=== PATIENT | male | born 1975 | race Caucasian/White ===

== ENCOUNTER 2018-09-06 14:47 | Inpatient (IN) ==
[2018-09-06] MEDS ORDERED: MORPHINE IV ONE ×2 (14:56→17:15)
[2018-09-06] MEDS ORDERED: ZOFRAN IV ONE (14:56)
[2018-09-06] MEDS ORDERED: ZOFRAN ONE (15:00)
[2018-09-06] MEDS ORDERED: MORPHINE ONE (15:01)
[2018-09-06] MEDS ORDERED: KEFZOL 2 GM/D5W 2 GM/50 ML IVPB IV ONE (15:25)
[2018-09-06 15:42] LABS: BASO# 0.07 X1000 (0.0-0.2); BASO% 0.6 % (0.0-0.8); EOS# 0.17 X1000 (0.0-0.7); EOS% 1.5 % (0.0-10.0); HEMATOCRIT 44.3 % (42.0-52.0); HEMOGLOBIN 15.4 g/dL (14.0-18.0); IMM GRAN# 0.04 X1000 (0.0-0.04); IMM GRAN% 0.4 % (0.0-0.5); LYMPH% 34.6 % (20.5-51.1); MCH 30.2 PG (27-31); MCHC 34.8 g/dL (33-37); MCV 86.9 FL (81-99); MONO# 0.72 X1000 (0.11-0.59); MONO% 6.6 % (1.7-9.3); NEUT# 6.18 X1000 (1.4-6.5); NEUT% 56.3 % (42.2-75.2); PLT 264 X1000 (130-400); RDW 12.7 % (11.5-14.5); WBC 10.98 X1000 (4.8-10.8)
--- NOTE | 2018-09-06 15:43 | PROVIDER DOCUMENTATION ---
This chart was entered by Tonya Blake Scribe, acting as scribe for Aracelis Hartman MD. HPI-Musculoskeletal Pain/Inj - GENERAL Stated Complaint: FALL/RT LEG INJURY Time Seen by Provider: 09/06/18 14:56 Source: patient - HX OF PRESENT ILLNESS-MUSKULOSKELTAL Nature of Presenting Problem: Patient is a 43 year old male who presents with right lower leg pain. States he fell out of a truck prior to arrival. Denies any other injuries. Quality of Pain: reports: aching Severity in ED: moderate Onset/Duration: just prior to arrival Timing: still present Modifying Factors: worse with: movement Any recent injury?: Yes (fall ) Similar Symptoms Previously?: No Recently seen or treated by another doctor?: No - FALL INJURY Location of Pain/Injury: reports: lower extremity (right lower leg) Pain Radiation: reports: no radiation Reason for Fall: reports: unknown Symptoms prior to fall:: reports: none Loss of Consciousness: no loss of consciousness Injury Associated Symptoms: reports: denies symptoms - LOWER EXTREMITY PAIN/INJURY Lower Extremities Pain: leg: right (lower ) Context / Method of Injury: reports: fell Associated Symptoms: reports: denies symptoms Review of Systems - Adult - REVIEW OF SYSTEMS - ADULT ROS:: limited per condition Constitutional: reports: no symptoms reported Eyes: reports: no symptoms reported Ears, Nose, Mouth & Throat: reports: no symptoms reported Cardiovascular: reports: no symptoms reported Respiratory: reports: no symptoms reported Gastrointestinal: reports: no symptoms reported Genitourinary: reports: no symptoms reported Musculoskeletal: reports: see HPI, other (right lower leg pain). denies: back pain, muscle aches, neck pain Integumentary: reports: no symptoms reported Neurological: reports: no symptoms reported Psychiatric: reports: no symptoms reported Endocrine: reports: no symptoms reported Hematologic/Lymphatic: reports: no symptoms reported Allergic/Immunologic: reports: no symptoms reported All Other Systems: Reviewed and Negative Past History - Adult - PAST MEDICAL HISTORY-ADULT Review of Records: reports: Old Records Reviewed, Nursing Assessment Review, Medications Reviewed, Social history reviewed & non-contributory. Major Childhood Illnesses: reports: denies history Cardiovascular: reports: denies history Respiratory: reports: denies history Gastrointestinal: reports: denies history Obstetrical/Gynecological: reports: denies history Genitourinary: reports: denies history Musculoskeletal: reports: denies history Neurological: reports: denies history Psychiatric: reports: denies history Endocrine/Immune: reports: denies history Other Conditions: reports: denies history - PRIOR SURGERIES/PROCEDURES Surgical/Procedure History: reports: reviewed, not pertinent - IMMUNIZATION STATUS Childhood Immunizations: See Nurse Assessment Flu Vaccine: See Nurse Assessment - FAMILY HISTORY Family History: reviewed, not pertinent - SOCIAL HISTORY Smoking: denies Substance Use: denies Physical Exam-Injury Related - Physical Exam-Injury Related Initial Vital Signs Reviewed: Yes General Appearance: alert, mild distress. negative: lethargic Head, Ears, Nose, Mouth & Throat: normocephalic/atraumatic, moist mucous membranes. negative: angioedema Respiratory: chest non-tender, lungs clear, normal breath sounds. negative: wh eezing Cardiovascular: normal peripheral pulses, regular rate, rhythm. negative: tachycardia Peripheral Pulses: dorsalis-pedis (R): 2+, dorsalis-pedis (L): 2+ Extremity: normal capillary refill, deformity (right lower leg), tenderness (right lower leg), other (abrasion to right anterior lower leg). negative: erythema Integumentary: abrasion (right anterior lower leg). negative: ecchymosis, swel ling Neurologic: grossly normal. negative: aphasia, facial droop Psych/Mental Status: normal mood/affect, oriented x 3. negative: anxious Progress - PLAN OF CARE/RESULTS Progress/Plan/Lab Results: Vital Signs - 8 hr 09/06/18 15:03 Pulse Rate 75 Respiratory Rate 27 H Blood Pressure 123/74 O2 Sat by Pulse Oximetry 97 Laboratory Results - last 24 hr 09/06/18 09/06/18 09/06/18 15:02 15:02 15:02 WBC 10.98 H RBC 5.10 Hgb 15.4 Hct 44.3 MCV 86.9 MCH 30.2 MCHC 34.8 RDW Std Deviation 12.7 Plt Count 264 MPV 11.0 H Immature Gran % (Auto) 0.4 Neut % (Auto) 56.3 Lymph % (Auto) 34.6 Hood % (Auto) 6.6 Eos % (Auto) 1.5 Baso % (Auto) 0.6 Immature Gran # (Auto) 0.04 Neut # (Auto) 6.18 Lymph # (Auto) 3.80 H Hood # (Auto) 0.72 H Eos # (Auto) 0.17 Baso # (Auto) 0.07 PT 12.6 INR 0.88 PTT (Actin FS) 24.2 Sodium 143 Potassium 4.7 Chloride 106 Carbon Dioxide 20 L Anion Gap 17 BUN 14 Creatinine 1.2 Estimated GFR/1.73 m2 > 60 BUN/Creatinine Ratio 12 Glucose 119 H Calculated Osmolality 287 Calcium 10.0 Total Bilirubin 0.34 AST 42 H ALT 31 Alkaline Phosphatase 100 Total Protein 7.0 Albumin 4.8 Globulin 2.2 Albumin/Globulin Ratio 2.2 Orders Category Date Time Status Admit - [facility] Routine AdmDCTranf 09/06/18 15:45 Active Saline Loc NOW Care 09/06/18 15:24 Active ANKLE COMPLETE RIGHT [RAD] Stat Exams 09/06/18 14:57 Completed LOWER LEG-RIGHT [RAD] Stat Exams 09/06/18 15:57 Completed CBC WITH DIFF [HEME] Stat Lab 09/06/18 15:02 Completed COMPREHENSIVE METABOLIC PANEL [CHEM] Stat Lab 09/06/18 15:02 Completed PT [PROTIME WITH INR] [COAG] Stat Lab 09/06/18 15:02 Completed PTT [COAG] Stat Lab 09/06/18 15:02 Completed 0.9% Sodium Chloride Inj [Ns] 1,000 ml Med 09/06/18 15:45 Active IV 125 mls/hr Cefazolin 1 gm/D5w [Kefzol 1 gm/D5w] Med 09/06/18 16:00 Active 1 gm in 50 ml IV Q8H Morphine Med 09/06/18 15:45 Active 2 mg IV Q2H PRN PRN Morphine Med 09/06/18 15:01 Discontinued 4 mg .ROUTE .STK-MED ONE Morphine Med 09/06/18 14:56 Discontinued 4 mg IV NOW ONE Ondansetron [Zofran] Med 09/06/18 15:00 Discontinued 4 mg .ROUTE .STK-MED ONE Ondansetron [Zofran] Med 09/06/18 14:56 Discontinued 4 mg IV NOW ONE Ondansetron [Zofran] Med 09/06/18 15:45 Active 4 mg IV Q4H PRN PRN Transfer/Admit Order [TRANSFER] Routine Transfer 09/06/18 15:44 Ordered Result Diagrams: 09/06/18 15:02 09/06/18 15:02 - XRAY 1 XRAY: Right XRAY Study: Tibia/Fibula Impression: See EMR Report ( EXAM: LOWER LEG-RIGHT INDICATION: BROKEN LEG TECHNIQUE: 2 views COMPARISON: None. FINDINGS: There is an oblique fracture through the proximal shaft of the fibula with moderate anterolateral displacement of the distal fracture fragment. The visualized joint spaces are essentially unremarkable. There is soft tissue edema around the fracture. IMPRESSION: Fracture of the proximal fibula as described. Please see separate right ankle radiograph report for details of a distal tibial fracture. Electronically signed by Elder Hdz 09/06/2018 4:19 PM 09/06/18 1619 Interpreting Physician: Elder Hdz MD Dictated Date/Time: 09/06/18 1618 cc: Aracelis Hartman MD; Melanie Pan MD) 2 XRAY: Right XRAY Study: Ankle Impression: See EMR Report ( EXAM: ANKLE COMPLETE RIGHT INDICATION: ANKLE FRACTURE AND INJURY TECHNIQUE: 2 views COMPARISON: None. FINDINGS: There is an oblique fracture through the distal shaft of the tibia with mild comminution and mild to moderate anterolateral displacement of the distal fracture fragment. No other fracture is appreciated. The visualized joint spaces are essentially unremarkable. There is soft tissue edema around the fracture. IMPRESSION: Fracture of the distal tibia as described. Electronically signed by Elder Hdz 09/06/2018 3:43 PM 09/06/18 1543 Interpreting Physicia n: Elder Hdz MD Dictated Date/Time: 09/06/18 1542 cc: Aracelis Hartman MD; None,PCP) - CONSULTS/PCP/HOSPITALIST Notification #1 *Consult/PCP/Hospitalist*: Dr. Garcia Time Discussed: 15:39 Reason/Comments: Dr. Hartman consulted with Dr. Garcia about patient. Consult Disposition: Admit Procedures - SPLINTING Right Lower Extremity Other Location: Right lower leg Pre-Procedure Neurovascular Exam: Intact Splint Application (Hand-Made): Stir-Up Applied By: ED Physician Assisted By: customs entry clerk Post Procedure Neurovascular Exam: Intact - DISLOCATION REDUCTION Right Other Other Location: Right lower leg Consent Form Signed?: Yes Time-Out Verification Completed?: Yes Pre-Procedure Neurovascular Exam: Intact Conscious Sedation: Yes Reduction Attempts: 1 Post Procedure Neurovascular Exam: Intact Post Reduction Film: Deformity Reduced Post Reduction Splint Applied?: Yes Departure - Departure Date of Disposition Decision: 09/06/18 Time of Disposition Decision: 15:42 DIAGNOSIS: Open fracture of distal end of right tibia Disposition: ADMITTED INPATIENT 09 Certified Medical Emergency: Emergent Condition: Good - Critical Care Note This patient required my direct & personal management of CC.: No Attestation - Physician/ JENNIE Attestation Patient care was provided by Advanced Practice Provider:: No The physician spent face to face time with patient:: Yes Advanced Practice Provider documentation review:: Supervising physician onsite and consulted in the evaluation and care of this patient. The physician did have a face to face encounter with the patient. This chart was documented by the indicated scribe, (Tonya Blake Scribe) and accurately reflects the services I performed and decisions made by me, Aracelis Hartman MD, as attested by the provider's signature.
[2018-09-06 15:45] LABS: INR 0.88; PROTIME 12.6 Seconds (11.0-16.0)
[2018-09-06] MEDS ORDERED: ZOFRAN IV PRN ×2 (15:45→19:00)
[2018-09-06] MEDS ORDERED: MORPHINE IV PRN (15:45)
[2018-09-06] MEDS ORDERED: NS 1,000 ML IV ONE (15:45)
[2018-09-06 15:46] LABS: PTT 24.2 Seconds (22.3-41.8)
--- NOTE | 2018-09-06 15:46 | Diag Imaging Result Doc PS360 ---
EXAM: ANKLE COMPLETE RIGHT INDICATION: ANKLE FRACTURE AND INJURY TECHNIQUE: 2 views COMPARISON: None. FINDINGS: There is an oblique fracture through the distal shaft of the tibia with mild comminution and mild to moderate anterolateral displacement of the distal fracture fragment. No other fracture is appreciated. The visualized joint spaces are essentially unremarkable. There is soft tissue edema around the fracture. IMPRESSION: Fracture of the distal tibia as described. Electronically signed by Elder Hdz 09/06/2018 3:43 PM
[2018-09-06 15:58] LABS: AGAP 17; ALB/GLOB RATIO 2.2; ALBUMIN 4.8 g/dL (3.5-5.0); ALKALINE PHOSPHATASE 100 U/L (32-122); BUN 14 mg/dL (8-22); CHLORIDE 106 mmol/L (98-107); COSMO 287; CREATININE 1.2 mg/dL (0.7-1.2); ESTIMATED GFR > 60; GLUCOSE 119 mg/dL (70-104); GOT 42 U/L (10-34); GPT 31 U/L (10-44); POTASSIUM 4.7 mmol/L (3.5-5.1); SODIUM 143 mmol/L (136-145); TCO2 20 mmol/L (25-35); TOTAL BILIRUBIN 0.34 mg/dL (0.20-1.00)
[2018-09-06] MEDS ORDERED: KEFZOL 1 GM/D5W 1 GM/50 ML IVPB IV SCH (16:00)
--- NOTE | 2018-09-06 16:22 | Diag Imaging Result Doc PS360 ---
EXAM: LOWER LEG-RIGHT INDICATION: BROKEN LEG TECHNIQUE: 2 views COMPARISON: None. FINDINGS: There is an oblique fracture through the proximal shaft of the fibula with moderate anterolateral displacement of the distal fracture fragment. The visualized joint spaces are essentially unremarkable. There is soft tissue edema around the fracture. IMPRESSION: Fracture of the proximal fibula as described. Please see separate right ankle radiograph report for details of a distal tibial fracture. Electronically signed by Elder Hdz 09/06/2018 4:19 PM
[2018-09-06] MEDS ORDERED: DIPRIVAN 1% IV ONE ×2 (17:14→17:33)
--- NOTE | 2018-09-06 18:08 | Diag Imaging Result Doc PS360 ---
EXAM: LOWER LEG-RIGHT INDICATION: POST REDUCTION AND SPLINT TECHNIQUE: 4 views COMPARISON: 09/06/2018 FINDINGS: There has been an interval reduction attempt of the tibial and fibular fractures noted on the previous radiograph. There is stable moderate lateral displacement of the fibular fracture but there is much less anterior displacement. There has been very little if any change in the position of the displaced distal tibia fracture as seen from the two AP projections provided. There is casting material over the lower leg. IMPRESSION: Interval reduction attempt for the tibial and fibular fractures as detailed above. Electronically signed by Elder Hdz 09/06/2018 6:06 PM
[2018-09-06] MEDS: MORPHINE IV PRN ×2 (20:10→22:15)
[2018-09-06] MEDS: KEFZOL 2 GM/D5W 2 GM/50 ML IVPB IV SCH (20:17)
--- NOTE | 2018-09-06 20:33 | HISTORY AND PHYSICAL ---
DATE: 09/06/2018 CHIEF COMPLAINT: Fall and right leg pain. HISTORY OF PRESENT ILLNESS: This is a 43-year-old male who presented with right lower leg pain to [facility] Emergency Department. He reported he fell out of the back of a truck earlier and landed on his leg. He denies any other injuries. He denies LOC. REVIEW OF SYSTEMS: A 12-point review of systems was performed, pertinent positives listed in the HPI. PAST MEDICAL HISTORY: Patient denies. MEDICATIONS: Patient denies taking any medications. PRIOR SURGERIES: Patient denies. FAMILY HISTORY: Not pertinent. SOCIAL HISTORY: Patient reports he smokes daily. He denies drug use or alcohol use. PHYSICAL EXAMINATION: Vital signs: Pulse rate 75, respiratory rate 27, blood pressure 123/74, oxygen saturation 97% on room air. General: The patient is awake and alert, sitting in the bed comfortably with family at bedside. HEENT: Head is atraumatic, normocephalic. Respiratory: There is equal chest expansion, rise, and fall. Cardiovascular: Regular rate and rhythm. Extremities: Right lower extremity: There is notable deformity of the right lower extremity. The patient is now in a splint to the right lower extremity. There are good pedal pulses. There is good capillary refill. LABORATORY: White blood cells 10.98, hemoglobin 15.4, hematocrit 44.3, platelets 264,000. INR 0.88. Sodium 143, potassium 4.7, BUN 14, creatinine 1.2, glucose 119. IMAGING: X-rays were performed of the right lower extremity and showed a proximal fibula fracture, as well as a distal tibia fracture with displacement. ASSESSMENT: Right proximal fibula fracture with right distal tibia fracture and displacement. PLAN: Mr. Rock will be admitted to the hospitalist service. We will plan a right tibial nail tomorrow around 1 p.m. The patient agrees with this plan. I have talked to the patient, and all the risks and benefits were went over with the patient and family at bedside. He agrees to these risks, including . Risks include damage to nerve, blood vessel, anesthesia complications, and decreased use of that leg. The patient is willing to proceed. We will get him set up for tomorrow at 1 p.m. Dictated by DANNY Peres for Rohan Garcia MD cc: DANNY Peres MD
[2018-09-06] MEDS: OXY IR PO PRN (20:53)
[2018-09-07] MEDS: OXY IR PO PRN ×4 (00:09→09:02)
[2018-09-07] MEDS: MORPHINE IV PRN ×3 (01:15→10:46)
[2018-09-07] MEDS: KEFZOL 2 GM/D5W 2 GM/50 ML IVPB IV SCH ×4 (04:30→22:15)
[2018-09-07] MEDS ORDERED: VERSED ONE (12:19)
[2018-09-07] MEDS ORDERED: XYLOCAINE-MPF 2% ONE (12:20)
[2018-09-07] MEDS ORDERED: NEOSPORIN G.U. IRRIGANT ONE ×2 (12:20→13:34)
[2018-09-07] MEDS ORDERED: FENTANYL ONE (12:20)
[2018-09-07] MEDS ORDERED: DIPRIVAN 1% ONE (12:20)
[2018-09-07] MEDS ORDERED: DECADRON ONE (13:48)
[2018-09-07] MEDS ORDERED: ZOFRAN ONE (13:48)
[2018-09-07] MEDS ORDERED: OFIRMEV 1000 MG/ISOTONIC SOLN 1,000 MG/100 ML BOTTLE ONE (13:51)
[2018-09-07] MEDS ORDERED: MARCAINE 0.25% PF ONE (14:56)
[2018-09-07] MEDS ORDERED: HALDOL IV PRN (15:29)
[2018-09-07] MEDS ORDERED: MILK OF MAGNESIA PO PRN (15:31)
[2018-09-07] MEDS ORDERED: ZOFRAN IV PRN (15:31)
[2018-09-07] MEDS ORDERED: NS 1,000 ML IV SCH ×2 (16:00→18:49)
[2018-09-07] MEDS: TYLENOL PO SCH ×2 (16:19→22:15)
--- NOTE | 2018-09-07 19:54 | OPERATIVE NOTE ---
PROCEDURE DATE: 09/07/2018 PREOPERATIVE DIAGNOSIS: Right grade 1 open distal tibia fracture with associated proximal fibular fracture. POSTOPERATIVE DIAGNOSIS: Right grade 1 open distal tibia fracture with associated proximal fibular fracture. PROCEDURE: 1. Irrigation and debridement of a right grade 1 open tibia fracture. 2. Intramedullary nailing of the right tibia with a Synthes 10 x 365 mm nail. SURGEON: Dr. Rohan Garcia. ASSEMBLER BICYCLE: DANNY Peres SECOND ROLLER LEVELER: Griffin Andrews RN. ANESTHESIA: General. IV FLUIDS: 2000 mL lactated Ringer's. ESTIMATED BLOOD LOSS: 75 mL. COMPLICATIONS: None. INDICATION: The patient is a pleasant 43-year-old male who is 1 day status post a fall from truck while at work. He developed knee pain discomfort and presented to the emergency room. X-rays revealed a right comminuted distal one-third tibia fracture with associated proximal fibula fracture. The patient had suspicion for a small inside-out puncture wound with a small amount of bleeding. Recommendation was to proceed with irrigation and debridement, and intramedullary nailing was offered. Risks and benefits of surgery were explained, including the risks of anesthesia, , bleeding, infection, failure to relieve pain, postop stiffness, nerve injury, blood clots, and other imponderables. All questions answered. Patient and family wished to proceed with surgery. DETAILS OF OPERATION: The patient was taken to the operating room and placed supine on the operating table. Once adequate anesthesia was obtained, the patient's right lower extremity was prepped and draped in usual sterile fashion. Esmarch was used to exsanguinate the right lower extremity. Attention then turned to the site of the fracture. It appeared the patient had a small abrasion that had no active bleeding, however suspicion for a small pinhole wound. Given the patient's findings and suspicion for an open fracture, it was incised proximally and extended at the fracture site. The patient did have a butterfly fragment which corresponded to it with a sharp point which corresponded to the likely open pinhole site. There was no evidence of contamination. Approximately 3000 mL of antibiotic pulsatile lavage was used to copiously irrigate the fracture. Attention was then turned to the anterior aspect of the knee. A longitudinal incision was made over the patella tendon. Dissection carried through the subcutaneous tissue. The medial retinaculum was then incised longitudinally. A guide pin was then placed on the proximal tibia and advanced into the intramedullary canal. Its good position was confirmed with C-arm visualization. A starting reamer was then passed. A ball-tip guide pin was then advanced in the intramedullary canal across the fracture site. After confirming good alignment of the fracture and good position of the ball-tipped guide pin, the length of the nail was determined at 365 mm. Sequential reaming was conducted up to size 10 mm in preparation for a 365 x 10 mm nail. After reaming had been conducted, the tibial nail was then placed over the ball- tipped guide pin. Had good alignment of the fracture after seating the nail. This was confirmed with AP and lateral projections. One static locking screw was placed proximal to the fracture site using an outrigger guide. After this had been performed, attention was then turned to the distal tibial nail, and 2 [id number] distal locking screws were placed using perfect chicken ranch technique through 2 stab incisions. Final C-arm visualization revealed good alignment of the fracture and good position of the hardware as well as good alignment of the fibula. The ankle was stressed and there was no evidence of instability. After this had been performed, the wounds were copiously irrigated once again. 2-0 Prolene was used to close the wound over the fracture site. Skin pablito were placed in the distal skin incisions for the static locking screws after copious irrigation proximally. 0 Vicryl was used to repair the [*]retinaculum in a running fashion. This was followed by 2-0 Vicryl and skin pablito. Skin pablito were placed in the proximal surgical incision for the proximal locking screw. 0.25% Marcaine without epinephrine was injected locally. Adaptic was placed on all wounds followed by sterile 4x4s and Webril. A posterior splint with a stirrup was applied to the right lower extremity. The patient tolerated the procedure well and was transferred to the recovery room in stable condition. cc: Rohan Garcia MD
[2018-09-07] MEDS ORDERED: COLACE PO SCH (21:00)
[2018-09-07] MEDS: PERIDEX MT SCH (22:15)
[2018-09-08] MEDS: KEFZOL 2 GM/D5W 2 GM/50 ML IVPB IV SCH ×2 (05:22→12:35)
[2018-09-08] MEDS ORDERED: XARELTO PO SCH (06:00)
[2018-09-08 06:37] LABS: HEMATOCRIT 36.8 % (42.0-52.0); HEMOGLOBIN 12.3 g/dL (14.0-18.0)
[2018-09-08 06:49] LABS: AGAP 9; BUN 8 mg/dL (8-22); CHLORIDE 104 mmol/L (98-107); COSMO 273; CREATININE 0.9 mg/dL (0.7-1.2); ESTIMATED GFR > 60; GLUCOSE 106 mg/dL (70-104); POTASSIUM 4.2 mmol/L (3.5-5.1); SODIUM 137 mmol/L (136-145); TCO2 24 mmol/L (25-35)
[2018-09-08 07:39] VITALS: BP 125/73
[2018-09-08] MEDS ORDERED: FERROUS SULFATE PO SCH (08:00)
[2018-09-08] MEDS: TYLENOL PO SCH (08:51)
[2018-09-08] MEDS: PERIDEX MT SCH (08:52)
--- NOTE | 2018-09-08 08:56 | ORTHOPAEDICS PROGRESS NOTE ---
DATE: 09/08/2018 SUBJECTIVE: Mr. Rock is lying in bed this morning. Pain seems controlled. He still has some numbness to the leg. OBJECTIVE: Right lower extremity exam: Splint is clean, dry, and intact. He does have good dorsiflexion, plantar flexion of the toes. Has good capillary refill to the toes; just a little bit of numbness to the toes. ASSESSMENT: Status post right intramedullary nailing tibia. PLAN: Mr. Rock is going to be touchdown weightbearing right lower extremity for now. He will be discharged home today after [address] IV [address]. Garcia will see him in 2 weeks in clinic. cc: MD Rohan Dalton MD
[2018-09-08] MEDS: OXY IR PO PRN (11:07)
== END 2018-09-08 14:20 | disposition home or self-care (01) | DRG 494 ==
LOC: ED 14:47 → 4N 16:16
PROVIDERS: ADMIT Orthopaedic Surgery Adult Reconstructive Orthopaedic Surgery; ATTEND Orthopaedic Surgery Adult Reconstructive Orthopaedic Surgery
CPT/HCPCS: 73590; 73610; 76000; 80048; 80053; 85014; 85018; 85025; 85610; 85730; 94761; 94799; 96361; 96365; 96375; 96376; 97163; 99285; A9270; J0131; J0690; J1100; J2250; J2270; J2405; J3010; J7030; S0020